=== PATIENT | female | born 1955 ===

== ENCOUNTER → 2021-01-18 12:09 | Outpatient (CLI) | payer MEDICARE, SELFPAY ==
--- NOTE | ~2021-01-18 | DEXA_ITS ---
Bone Density Report Name: Bailey Paez Age: 65 Sex: Female Ethnicity: White Date of : 1955 Indication: osteopenia; parental hip fracture; cancer; postmenopausal Referring Provider: RONNIE, GASPER Franco Study: Bone densitometry was performed. Exam Date: January 18, 2021 Accession number: [id number] Bone Density: Region BMD T-score Z-score Classification AP Spine (L1-L4) 0.742 -2.8 -0.8 Osteoporosis Femoral Neck (Left) 0.844 0.0 1.6 Normal Total Hip (Left) 0.905 -0.3 1.1 Normal Femoral Neck (Right) 0.794 -0.5 1.2 Normal Total Hip (Right) 0.898 -0.4 1.0 Normal Total Hip Mean 0.902 -0.4 1.1 Normal World Health Organization criteria for BMD impression classify patients as: Normal (T-score at or above -1.0), Osteopenia (T-score between -1.0 and -2.5), or Osteoporosis (T-score at or below -2.5). 10-year Fracture Risk: FRAX not reported because: Some T-score for Spine Total or Hip Total or Femoral Neck at or below -2.5 Previous Exams: Region Exam Age BMD T-score BMD Change BMD Change Date g/cm2 vs Baseline vs Previous AP Spine(L1-L4) 01/18/2021 65 0.742 -2.8 -0.093* -0.051* 08/14/2018 63 0.794 -2.3 -0.042* -0.042* 07/04/2016 61 0.835 -1.9 Total Hip(Left) 01/18/2021 65 0.905 -0.3 -0.048* -0.045* 08/14/2018 63 0.950 0.1 -0.004 -0.004 07/04/2016 61 0.953 0.1 Total Hip(Right) 01/18/2021 65 0.898 -0.4 -0.035* -0.039* 08/14/2018 63 0.936 0.0 0.004 0.004 07/04/2016 61 0.933 -0.1 *Denotes significance at 95% confidence level, LSC for AP Spine = 0.022 g/cm2, LSC for Total Hip = 0.027 g/cm2 Clinical Information Provided by Patient: Parent has had a hip fracture Has used the following medications: Vitamin D, Calcium, MTV, Anastrozole Has the following medical conditions: Cancer Patient maximum height was 65.0 Menopause Age: 56 Drinks caffeinated beverages Onset of menses at age 12 Number of children 2 Impression: The patient has osteoporosis, based on the Total Spine T-score. The patient has risk factors, including: parental hip fracture. The BMD for the AP Spine(L1-L4) decreased, changing by -0.051 since the last DXA exam. The BMD for the Total Hip(Left) decreased, changing by -0.045 since the last DXA exam. The BMD for the Total Hip(Right) decreased, changing by -0.039 since the last DXA exam. Discussion: GUMARO
== END ==
PROVIDERS: Visit Provider Internal Medicine Medical Oncology
DX: E55.9 Vitamin D deficiency, unspecified (principal); Z79.811 Long term (current) use of aromatase inhibitors; M81.0 Age-related osteoporosis without current pathological fracture
CPT/HCPCS: 77080

== ENCOUNTER → 2023-01-29 13:36 | Outpatient (CLI) | payer MEDICARE, SELFPAY ==
--- NOTE | ~2023-01-29 | DEXA_ITS ---
Bone Density Report Name: CITLALY GARCIAS Age: 67 Sex: Female Ethnicity: White Date of : 1955 Indication: postmenopausal osteoporosis; parental hip fracture; cancer; Referring Provider: PARMJIT BARRON Study: Bone densitometry was performed. Exam Date: January 29, 2023 Accession number: [id number] Bone Density: Region BMD T-score Z-score Classification AP Spine (L1-L4) 0.743 -2.8 -0.7 Osteoporosis Femoral Neck (Left) 0.867 0.2 1.9 Normal Total Hip (Left) 0.897 -0.4 1.1 Normal Femoral Neck (Right) 0.817 -0.3 1.5 Normal Total Hip (Right) 0.910 -0.3 1.2 Normal Total Hip Mean 0.904 -0.4 1.2 Normal World Health Organization criteria for BMD impression classify patients as: Normal (T-score at or above -1.0), Osteopenia (T-score between -1.0 and -2.5), or Osteoporosis (T-score at or below -2.5). 10-year Fracture Risk: FRAX not reported because: Some T-score for Spine Total or Hip Total or Femoral Neck at or below -2.5 Previous Exams: Region Exam Age BMD T-score BMD Change BMD Change Date g/cm2 vs Baseline vs Previous AP Spine(L1-L4) 01/29/2023 67 0.743 -2.8 -0.093* 0.000 01/18/2021 65 0.742 -2.8 -0.093* -0.051* 08/14/2018 63 0.794 -2.3 -0.042* -0.042* 07/04/2016 61 0.835 -1.9 Total Hip(Left) 01/29/2023 67 0.897 -0.4 -0.056* -0.008 01/18/2021 65 0.905 -0.3 -0.048* -0.045* 08/14/2018 63 0.950 0.1 -0.004 -0.004 07/04/2016 61 0.953 0.1 Total Hip(Right) 01/29/2023 67 0.910 -0.3 -0.023 0.012 01/18/2021 65 0.898 -0.4 -0.035* -0.039* 08/14/2018 63 0.936 0.0 0.004 0.004 07/04/2016 61 0.933 -0.1 *Denotes significance at 95% confidence level, LSC for AP Spine = 0.022 g/cm2, LSC for Total Hip = 0.027 g/cm2 Clinical Information Provided by Patient: Parent has had a hip fracture Has used the following medications: Fosamax (i.e. alendronate), Vitamin D, Calcium, MTV, ANESTROZOL Has the following medical conditions: Cancer Patient maximum height was 65.0 Menopause Age: 56 Drinks caffeinated beverages Onset of menses at age 12 Number of children 2 Impression: The patient has osteoporosis, based on the Total Spine T-score. The patient has risk factors, including: parental hip fracture. No significant bone loss was observed. Discussion: INC
== END ==
DX: M81.0 Age-related osteoporosis without current pathological fracture (principal)
CPT/HCPCS: 77080

== ENCOUNTER 2025-02-28 10:39 | Outpatient (CLI) | payer MEDICARE, SELFPAY ==
--- NOTE | ~2025-02-28 | DEXA_ITS ---
Bone Density Report Name: CITLALY GARCIAS Age: 69 Sex: Female Ethnicity: White Date of : 1955 Indication: postmenopausal; screening for osteoporosis; parental hip fracture; height loss; cancer; Referring Provider: UNKNOWN, UNKNOWN Study: Bone densitometry was performed. Exam Date: February 28, 2025 Accession number: [id number] Bone Density: Region BMD T-score Z-score Classification AP Spine(L1-L4) 0.732 -2.9 -0.6 Osteoporosis Femoral Neck (Left) 0.872 0.2 2.1 Normal Total Hip (Left) 0.933 -0.1 1.5 Normal Femoral Neck (Right) 0.809 -0.4 1.5 Normal Total Hip (Right) 0.914 -0.2 1.4 Normal Total Hip Mean 0.924 -0.2 1.5 Normal World Health Organization criteria for BMD impression classify patients as: Normal (T-score at or above -1.0), Osteopenia (T-score between -1.0 and -2.5), or Osteoporosis (T-score at or below -2.5). 10-year Fracture Risk: FRAX not reported because: Some T-score for Spine Total or Hip Total or Femoral Neck at or below -2.5 Clinical Information Provided by Patient: Parent has had a hip fracture Has used the following medications: Vitamin D, Calcium Has the following medical conditions: Cancer Patient maximum height was 65.0 Menopause Age: 56 Drinks caffeinated beverages Onset of menses at age 12 Number of children 2 Impression: The patient has osteoporosis, based on the Total Spine T-score. The patient has risk factors, including: parental hip fracture. Discussion: INCREASED RISK OF FRACTURE. BONE DENSITY IS UNDESIRABLY LOW AT ONE OR MORE SKELETAL SITES, CONSISTENT WITH POSTMENOPAUSAL OSTEOPOROSIS. This patient's lowest T-score meets the World Health Organization's (WHO) criteria for osteoporosis at one or more sites (T-score -2.5 or below). In untreated patients, the risk of osteoporotic fracture increases approximately two-fold for each 1.0 SD decrease in T-score. Low bone density is not the only risk factor for fracture; also consider factors such as patient's age, frailty or poor health, risk of falling, risk of injury, previous osteoporotic fracture, family history of osteoporosis, cigarette smoking, low body weight, etc. Not everyone with low bone mineral density has osteoporosis; osteomalacia and other metabolic bone disorders should also be considered. Patients who have osteoporosis should be evaluated for specific diseases and conditions (secondary causes) that may cause or contribute to bone loss. The [place] [employer] Clinical Endocrinologists (AACE) and National Osteoporosis Foundation (NOF) recommend pharmacologic intervention for all postmenopausal women whose T-score is in this range. The patient should follow a healthful lifestyle (good nutrition with adequate calcium and vitamin D, and appropriate weight-bearing exercise). Follow-Up: Consider a repeat BMD and Vertebral Fracture Assessment (VFA) exam in 2 years or sooner if medically necessary, to reassess this patient's status. Reported by: BERNA on 02/28/2025 11:22:00 AM. Reviewed, dictated and finalized at location [facility]
--- OUTSIDE RECORDS SUMMARY | 2025-02-28 12:03 | XMS_ITS | Clinical Summary ---
Author Organization [facility] Address [address] [place] [address] Care Team Providers Care Forestry Worker Name Role Phone Monse Zeng NP Primary Care Provider + [phone] Allergies No known active allergies Medications anastrozole 1 MG tablet Take 1 tablet by mouth daily. 12/17/2018 Active Probiotic Product (PROBIOTIC & ACIDOPHILUS EX ST) Cap Take 1 tablet by mouth daily. Active omega-3 fatty acid 1000 MG capsule Take 1 capsule by mouth daily. Active Multiple Vitamins-Mineral s (MULTI COMPLETE OR) Take 1 tablet by mouth daily. Active calcium carbonate 1250 (500 Ca) MG tablet Take 1 tablet by mouth daily. Active traMADol 50 MG tabletIndication s:Acute Pain < 3 Day Supply Take 1 tablet (50 mg total) by mouth every 6 (six) hours as needed for Pain. Indications: Acute Pain < 3 Day Supply 8 tablet 05/17/2022 Active methocarbamol 750 MG TabIndications:S pasm of thoracic back muscle Take 2 tablets by mouth three times daily as needed for muscle pain and tightness. 90 tablet 05/21/2022 Active Active Problems Problem Noted Date Diagnosed Date Overweight (BMI 25.0-29.9) 05/21/2022 Prediabetes 11/11/2019 Breast cancer, stage 3 ([facility]) 013 Immunizations Name Administration Dates Next Due Fluzone High Dose - >Age 65 (Prefilled Syringe) 08/28/2021,08/28/2020,08/19/2019,2017 Influenza (Generic) 09/02/2017, 6,09/08/2015,2013,09/15/2013,09/22/2012 Influenza Adult (Generic) 08/28/2020,08/19/2019, 09/08/2015 MODERNA COVID-19 (12+) MRNA, LNP-S, PF, 100 MCG/ 0.5 ML DOSE 03/14/2022,07/25/2021,01/26/2021,2020 Pneumococcal (Pneumovax 23) 08/19/2019 Pneumococcal (Prevnar 13) 08/25/2018 Shingrix 06/08/2019,03/02/2019 Tdap (Adacel) 09/08/2014 Family History Medical History Relation Comments CHF Father Dementia Mother Diabetes Mother Relation Status Comments Father Mother Social History Tobacco Use Types Packs/Day Years Used Date Smoking Tobacco: Former Cigarettes Smokeless Tobacco: Never Tobacco Cessation:Counseling Given: Yes Alcohol Use Standard Drinks/Week Comments Yes 0 (1 standard drink = 0.6 oz pur e alcohol) social PHQ-2 Answer Date Recorded PHQ-2 Score - If the patient scores above 3, please move on to questions 3-9 0 05/21/2022 Comments No Sex and Gender Information Value Date Recorded Sex Assigned at Not on file Legal Sex Female 8:21 PM CDT Gender Identity Not on file Sexual Orientation Not on file Last Filed Vital Signs Vital Sign Reading Time Taken Comments Blood Pressure 132/82 05/21/2022 11:09 AM CDT Pulse 63 05/21/2022 11:09 AM CDT Temperature 37.1 C (98.7 F) 05/21/2022 11:09 AM CDT Respiratory Rate 18 05/21/2022 11:09 AM CDT Oxygen Saturation 98% 05/21/2022 11:09 AM CDT Inhaled Oxygen Concentration - - Weight 68.5 kg (151 lb) 05/21/2022 11:09 AM CDT Height 162.6 cm (5' 4 ) 05/21/2022 11:09 AM CDT Body Mass Index 25.92 05/21/2022 11:09 AM CDT Plan of Treatment Health Maintenance Due Date Last Done Comments Hepatitis C 1971 Mammogram Screening 1993 Annual Medicare Wellness Visit 2018 Dexa Scan (General) 2018 COVID-19 Vaccine ( season) 2024 08/29/2022, 03/14/2022, 07/25/2021, Additional history exists DTaP, Tdap and Td Vaccines (2 - Td or Tdap) 09/08/2024 09/08/2014 PHQ-2 (Physician [place]) 12/01/2024 RSV Immunization or 60+ Years (1 - 1-dose 75+ series) 2028 Colorectal Cancer Screening Colonoscopy (10 Years) 04/28/2028 04/28/2018 Zoster Vaccines Completed 06/08/2019, 03/02/2019 Pneumococcal Vaccine: 65+ Years Completed 08/19/2019, 08/25/2018 Meningococcal B Vaccine Aged Out No l onger eligible based on patient's age to complete this topic Meningococcal Vaccine Aged Out No heber nathan eligible based on patient's age to complete this topic RSV Immunizations Under 20 Months Aged Out No longer eligible based on patient's age to complete this topic Procedures Procedure Name Priority Date/Time Associated Diagnosis Comments COLONOSCOPY Routine 04/28/2018 12:00 AM CDT from Last 3 Months or Most Recently Relevant to Health Maintenance Results * Colonoscopy (04/28/2018 12:00 AM CDT) 04/28/2018 04/28/2018 Narrative [facility] TO EPIC CONVERSION - 04/28/2018 12:00 AM CDT Documented hx of procedure Procedure Note Lenore Marie MD - 10/04/2018 Documented hx of procedure us Generic Conversion Md MARIE GI PROCEDURE ORDERABLES Final Result [facility] TO EPIC CONVERSION from Last 3 Months or Most Recently Relevant to Health Maintenance Insurance MEDICARE [employer] Care Teams Forestry Worker Relationship Specialty [place] [id number] [address] PCP - General Nurse Practitioner Family 05/21/22
--- OUTSIDE RECORDS SUMMARY | 2025-02-28 12:03 | XMS_ITS | Clinical Summary ---
Author Organization [facility] Address [address] [place] [address] Phone Care Team Providers Care Extruder Operator Vertical Name Role Phone Vamshi Su MD Primary Care Provide r Allergies No known active allergies Medications MULTIVITAMIN ORAL Take by mouth. Active OMEGA-3 FATTY ACIDS (FISH OIL ORAL) Take by mouth. Active Lactobac comb [id number] ne 300-250 million cell-mg CapsuleIndicat ions:Breast cancer (CMS/HCC) Take by mouth. Active calcium carbonate (CALCIUM 600 ORAL) Take 1 Tablet by mouth. 1250 mg Active alendronate (FOSAMAX) 70 mg tablet TAKE 1 TABLET EVERY 7 DAYS. EMPTY STOMACH BEFORE OTHER MEDS,WITH 8OZ OF WATER, STAY UPRIGHT 30 MIN 12 Tablet 3 5 Active alendronate (FOSAMAX) 70 mg tablet TAKE 1 TABLET BY MOUTH EVERY 7 DAYS. EMPTY STOMACH BEFORE OTHER MEDS,WITH 8OZ OF WATER, STAY UPRIGHT 30 MIN 12 Tablet 3 4 02/18/20 25 Discontinued Active Problems Patient Care Coordination No te Formatting of this note migh t be different from the original. Primary Care: Raul Zabala FNP Referring Provider: Raul Zabala FNP [address] [place] [id number] Other: Problem Noted Date Diagnosed Date Prediabetes 11/11/2019 Influenza A 11/16/2017 Overview (11/16/2017): 2017 Breast cancer clinically T3N 1 left ILC pT3N2 multifocal stage IIIA 05/05/2013 Cancer Staging:Clinical:T3N1 left- Unsigned Pathologic: Unsigned Overview (05/28/2013): Er+,pr+, HER2 NEG, MIB 15% Bilateral mastectomies Chenotherapy, cytoxan,taxotere x 4, then RT, then aromatase inhibitor Resolved Problems Problem Noted Date Diagnosed Date Resolved Date History of blood clots 04/27 Encounters Date Type Department Care Team Description 02/17/2025 [facility] [address] [place] [address] Wen Guo MD 01/18/2025 External Device Data STL ABSTRACTION Provider, Abstract 12/22/2024 External Device Data STL ABSTRACTION Provider, Abstract 12/21/2024 External Device Data STL ABSTRACTION Provider, Abstract 12/14/2024 External Device Data STL ABSTRACTION Provider, Abstract from Last 3 Months Immunizations Immunization Administration Dates Next Due (Moderna Bivalent)(6 Mos Up) COVID-19 Vaccine - Emergency Use Authorization, MRNA(Pf) 50 Mcg/0.5 Ml Im Susp 08/29/2022 Influenza Seasonal Unspecifi ed Formulation IM 08/01/2022,09/08/2015,09/15/2013 Influenza Vaccine Split 3+ Yrs IM 08/11/2014 Family History Medical History Relation Name Comments Heart Disease Father Colon Cancer Maternal Grandfather Diabetes Mother Breast Cancer Neg Hx Ovarian Cancer Neg Hx Relation Name Status Comments Father Maternal Grandfather Mother Social History Tobacco Use Types Packs/Day Years Used Date Smoking Tobacco: Former Cigarettes 0.3 5 0 05/30/1975 - 05/30/1980 Smokeless Tobacco: Former Quit: 12/14/1980 Tobacco Cessation:Counseling Given: Not Answered Alcohol Use Standard Drinks/Week Comments Yes 0 (1 standard drink = 0.6 oz pur e alcohol) rare Feeling Safe Answer Date Recorded Are you in a relationship wi th someone who hurts you emotionally and/or physically? No 05/16/2023 Comments No Sex and Gender Information Value Date Recorded Sex Assigned at Not on file Legal Sex Female 9:10 AM CDT Gender Identity Not on file Sexual Orientation Not on file Occupation Industry Job Start Date Job End Date Not on file Not on file Not on file Not on file Last Filed Vital Signs Vital Sign Reading Time Taken Comments Blood Pressure 128/76 11/04/2024 11:02 AM MEDICAL LAB SCIENTIST Pulse 56 11/04/2024 11:02 AM MEDICAL LAB SCIENTIST Temperature 36.9 C (98.5 F) 11/04/2024 11:02 AM MEDICAL LAB SCIENTIST Respiratory Rate 16 11/04/2024 11:02 AM MEDICAL LAB SCIENTIST Oxygen Saturation 98% 05/06/2024 11:20 AM CDT Inhaled Oxygen Concentration - - Weight 68 kg (150 lb) 11/04/2024 11:02 AM MEDICAL LAB SCIENTIST Height 162.6 cm (5' 4 ) 11/04/2024 11:02 AM MEDICAL LAB SCIENTIST Body Mass Index 25.75 11/04/2024 11:02 AM MEDICAL LAB SCIENTIST Plan of Treatment Upcoming Encounters Date Type Department Care Team (Late st Contact Info) Description 05/05/2025 11:00 AM CDT Office Visit [facility] ONCOLOGY AND HEMATOLOGY-[address] [address] Wen Guo MD [address] [place] [address] Health Maintenance Due Date Last Done Comments Traditional Medicare (ACO) A nnual Wellness Visit 1972 FIT-DNA Q 3 years 1998 Flex Sig/CT Colonography Q 5 years 1998 BREAST CANCER SCREENING 04/27/2014 04/27/20 13, 06/22/2012, 06/19/2011, Additional history exists FIT/FOBT Q 1 year 06/28/2017 06/28/2016, 06/26/2015 INFLUENZA VACCINE (#1) 2024 2, 08/28/2021, 08/28/2020, Additional history exists COVID-19 Vaccine (2023-2 5 season) 2024 08/29/2022, 03/14/2022, 07/25/2021, Additional history exists DTAP/TDAP/TD VACCINES (2 - T d or Tdap) 09/08/2024 09/08/2014 OSTEOPOROSIS SCREENING 01/29/2025 3, 01/29/2023, 01/18/2021, Additional history exists RSV VACCINE (60+ or ) (1 - 1-dose 75+ series) 2028 COLORECTAL SCREENING 05/16/2028 05/16/2023, 05/16/2023, 04/28/2018, Additional history exists Colorectal Cancer Screening 05/16/2028 ZOSTER VACCINE Completed 06/08/2019, 03/02/2019 PNEUMOCOCCAL VACCINE 50+ YEARS Completed 08/19/2019 , 08/25/2018 Medical Devices Explanted Type Area Sorter Packer Device Identifier Shelf Expiration Date Model / Serial / Lot Port Ultra Slimport 6fr [id number] - [id number] Implanted:Qty: 1 on 06/09/2013 by Kandis Hoffman MD at [facility] Explanted:Qty: 1 on 09/17/2013 at [facility] [place] Right: Chest CR [employer] 08/31/2017 [id number] / / [id number] Description:Right IJ Procedures Procedure Name Priority Date/Time Associated Diagnosis Comments COLONOSCOPY REPORT 05/16/2023 8: 13 AM CDT XR DEXA BONE DENSITY AXIAL 1 OR MORE SITES Routine 01/29/2023 Osteoporosis, unspecified osteoporosis type, unspecified pathological fracture presence POC OCCULT BLOOD, IMMUNO, QUAL, STOOL Routine 06/28/2016 8:24 AM CDT Screening for malignant neoplasm of the rectum MAMMO DIAGNOSTIC UNI LEFT W OR WO CAD Routine 04/27/2013 4:35 PM CDT Mass of breast Abnormal mammogram from Last 3 Months or Most Recently Relevant to Health Maintenance Results * COLONOSCOPY REPORT (05/16/2023 8:13 AM CDT) Narrative Procedure Note Iftikhar Alvarez MD - 05/16/2023 8:13 AM CDT [facility] Endoscopy Patient Name: Bailey Paez Procedure Date: 05/16/2023 Date of : 1955 Attending MD: Iftikhar Alvarez MD, Procedure: Colonoscopy Indications: Surveillance: Personal history of adenomatous polyps on last colonoscopy 5 years ago Providers: Iftikhar Alvarez MD Referring MD: Vamshi Su Medicines: Propofol per Anesthesia Complications: No immediate complications. Procedure: Informed consent was obtained for the procedure, including moderate sedation after risks were discussed. Based on the pre-procedure assessment, including review of the patient's medical history, medications, allergies, and review of systems, the patient was deemed to be an appropriate candidate for sedation. A timeout was performed. Continuous ECG monitoring, pulse oximetry, blood pressure monitoring, and direct observation were performed. The Colonoscope was introduced through the anus and advanced to the cecum, identified by appendiceal orifice and ileocecal valve. The colonoscopy was performed without difficulty. The patient tolerated the procedure well. The quality of the bowel preparation was good. Estimated Blood Loss: Estimated blood loss: none. Findings: The colonic mucosa was without erythema or ulceration. There were no appreciable diverticulum. The colon prep was good excellent. There were no appreciable polypoid lesions or areas of mucosal change to suggest adenomatous tissue. Retroflexion showed internal hemorrhoids. Impression: Normal colonoscopy to the cecum without polyps in the setting of good prep. Internal hemorrhoids. Recommendation: Colon polyp surveillance recommend follow-up colonoscopy in 5 to 7 years Iftikhar Alvarez MD 05/16/2023 8:13:01 AM This report has been signed electronically. Number of Addenda: [phone] ; [place] [address] Iftikhar Alvarez MD GI PROCEDURE ORDERABLES Betty l Result * XR DEXA BONE DENSITY AXIAL 1 OR MORE SITES (01/29/2023) T-SCORE FEMUR EXECUTIVE CREATIVE DIRECTOR AL RADIOLOGY T-SCORE FEMUR (LEFT) EXTERNAL RADIOLOGY T-SCORE FEMUR (RIGHT) EXTERNAL RADIOLOGY T-SCORE FEMUR NECK EXTERNAL RADIOLOGY T-SCORE FEMORAL NECK (LEFT) EXTERNAL RADIOLOGY T-SCORE FEMORAL NECK (RIGHT) EXTERNAL RADIOLOGY T-SCORE HEEL EXTERNA L RADIOLOGY T-SCORE HEEL (LEFT) EXTERNAL RADIOLOGY T-SCORE HEEL (RIGHT) EXTERNAL RADIOLOGY T-SCORE HIP EXTERNAL RADIOLOGY T-SCORE HIP (LEFT) EXTERNAL RADIOLOGY T-SCORE HIP (RIGHT) EXTERNAL RADIOLOGY T-SCORE WRIST EXECUTIVE CREATIVE DIRECTOR AL RADIOLOGY T-SCORE WRIST (LEFT) EXTERNAL RADIOLOGY T-SCORE WRIST (RIGHT) EXTERNAL RADIOLOGY T-SCORE SPINE EXECUTIVE CREATIVE DIRECTOR AL RADIOLOGY Anatomical Region Laterality Modality Other us Beatrice Fulton MD DIAGNOSTIC IMAGING ORDER MODESTA Final Result * POC OCCULT BLOOD, IMMUNO, QUAL, STOOL (06/28/2016 8:24 AM CDT) OCCULT BLOOD, IMMUNOASSAY STOOL1 POC negative [facility] OCCULT BLOOD, IMMUNOASSAY STOOL2 POC [facility] OCCULT BLOOD, IMMUNOASSAY STOOL3 POC [facility] Stool specimen (specimen) STOOL SPECIMEN / Unknown 06/28/2016 8:24 AM CDT Adriane Mike NP POINT OF CARE TESTING Final Result [facility] * MAMMO DIGITAL DIAG UNI LEFT (04/27/2013 4:35 PM CDT) Anatomical Region Laterality Modality Breast Left Mammography 04/27/2013 4:35 PM CDT Impressions 04/28/2013 2:48 PM CDT IMPRESSION: Technically successful left breast ultrasound guided core biopsy with tissue marker placement and technically successful left axillary lymph node ultrasound guided core biopsy. Dictated from [facility] Narrative 04/28/2013 2:48 PM CDT LEFT BREAST ULTRASOUND 04/27/13 HISTORY: Left breast mass, which is highly concerning for malignancy. An ultrasound of the left axilla has been requested. TECHNIQUE: A left axillary ultrasound was performed. FINDINGS: In the left axilla, one if not 2 enlarged lymph nodes are identified. One of the lymph nodes has a cortex which is somewhat irregular and lobulated. This lymph node measures 1.8 x 1.2 x 1.2 cm in size. An ultrasound-guided core biopsy of this will be performed. EXAM: ULTRASOUND GUIDED VACUUM ASSISTED CORE BIOPSY OF THE LEFT BREAST, TISSUE MARKER CLIP PLACEMENT, UNILATERAL DIAGNOSTIC MAMMOGRAM AND ULTRASOUND GUIDED SPRING LOADED CORE BIOPSY OF LEFT AXILLARY LYMPH NODE. Date: 04/27/13 History: Left breast mass. An ultrasound-guided core biopsy has been requested. Procedure and Findings: The risks and potential benefits of the procedure were discussed with the patient and written informed consent was obtained. Attention was first directed to the left breast lesion of interest. After sterile preparation of the skin, 1% lidocaine without epinephrine and 2% lidocaine with epinephrine was utilized for local anesthesia. A 10 gauge vacuum-assisted core biopsy device was advanced through lesion of interest utilizing sonographic guidance. A total of 3 tissue cores were obtained through the lesion. A tissue marker clip was then placed at the biopsy site. Hemostasis was achieved. A sterile bandage and ice pack were applied. The tissue cores were submitted to surgical pathology in formalin for histologic analysis. Attention was then directed to the left axillary lymph node of interest. After sterile preparation of the skin, 1% lidocaine without epinephrine and 2% lidocaine with epinephrine was utilized for local anesthesia. A 14 gauge spring-loaded core biopsy device as advanced to the level of the suspicious lymph node. 2 cores were obtained through the lymph node utilizing sonographic guidance. Hemostasis was achieved. The specimens were submitted for histological evaluation. A two-view left unilateral full field digital mammogram was obtained postprocedure and demonstrates that the tissue marker clip is in the expected position. Patient tolerated the above procedures well and there was no evidence of immediate complication. Patient was given verbal as well as written postprocedural instructions prior to release from the department. Procedure Note Patricia Desai MD - 04/28/2013 LEFT BREAST ULTRASOUND 04/27/13 HISTORY: Left breast mass, which is highly concerning for malignancy. An ultrasound of the left axilla has been requested. TECHNIQUE: A left axillary ultrasound was performed. FINDINGS: In the left axilla, one if not 2 enlarged lymph nodes are identified. One of the lymph nodes has a cortex which is somewhat irregular and lobulated. This lymph node measures 1.8 x 1.2 x 1.2 cm in size. An ultrasound-guided core biopsy of this will be performed. EXAM: ULTRASOUND GUIDED VACUUM ASSISTED CORE BIOPSY OF THE LEFT BREAST, TISSUE MARKER CLIP PLACEMENT, UNILATERAL DIAGNOSTIC MAMMOGRAM AND ULTRASOUND GUIDED SPRING LOADED CORE BIOPSY OF LEFT AXILLARY LYMPH NODE. Date: 04/27/13 History: Left breast mass. An ultrasound-guided core biopsy has been requested. Procedure and Findings: The risks and potential benefits of the procedure were discussed with the patient and written informed consent was obtained. Attention was first directed to the left breast lesion of interest. After sterile preparation of the skin, 1% lidocaine without epinephrine and 2% lidocaine with epinephrine was utilized for local anesthesia. A 10 gauge vacuum-assisted core biopsy device was advanced through lesion of interest utilizing sonographic guidance. A total of 3 tissue cores were obtained through the lesion. A tissue marker clip was then placed at the biopsy site. Hemostasis was achieved. A sterile bandage and ice pack were applied. The tissue cores were submitted to surgical pathology in formalin for histologic analysis. Attention was then directed to the left axillary lymph node of interest. After sterile preparation of the skin, 1% lidocaine without epinephrine and 2% lidocaine with epinephrine was utilized for local anesthesia. A 14 gauge spring-loaded core biopsy device as advanced to the level of the suspicious lymph node. 2 cores were obtained through the lymph node utilizing sonographic guidance. Hemostasis was achieved. The specimens were submitted for histological evaluation. A two-view left unilateral full field digital mammogram was obtained postprocedure and demonstrates that the tissue marker clip is in the expected position. Patient tolerated the above procedures well and there was no evidence of immediate complication. Patient was given verbal as well as written postprocedural instructions prior to release from the department. IMPRESSION IMPRESSION: Technically successful left breast ultrasound guided core biopsy with tissue marker placement and technically successful left axillary lymph node ultrasound guided core biopsy. Dictated from [facility] [place] us Day Hernandez MD MAMMO ORDERABLES Final Result from Last 3 Months or Most Recently Relevant to Health Maintenance Insurance MEDICARE PART A AND B [employer] MEDICARE SUPP AESSI Advance Directives For more information, please contact: [phone] Documents on File Type Date Recorded Patient Ultimate Hoops Trainer Expl anation Advance Directive POA 05/27/2013 8:37 AM A dvance Directive POA Advance Directive Living Will 05/27/2013 8:37 AM Advance Directive Living Will * Full Code (Latest Code Status on File) Date Activated Date Inactivated Comments 05/16/2023 6:50 AM 05/16/2023 10:47 AM * Full Code Date Activated Date Inactivated Comments 04/28/2018 7:39 AM 04/28/2018 11:35 AM * Full Code Date Activated Date Inactivated Comments 05/31/2014 11:47 AM 05/31/2014 5:22 PM * Full Code Date Activated Date Inactivated Comments 09/17/2013 8:15 AM 09/17/2013 12:04 PM * Full Code Date Activated Date Inactivated Comments 09/17/2013 8:08 AM 09/17/2013 8:15 AM Care Teams Extruder Operator Vertical Relationship Specialty Start Date End Date Vamshi Su MD PCP - General Internal Medicine 05/29/16
--- OUTSIDE RECORDS SUMMARY | 2025-02-28 12:03 | XMS_ITS | Encounter Summary ---
Author Organization [facility] Address [facility] [place] [address] Care Team Providers Care Remote Sensing Technologist Name Role Phone Vamshi Su MD Primary Care Provider [phone] Monse Zeng NP Primary Care Provider + [phone] Encounter Details Date Type Department Care Team (Latest Contact Info) Description 10/06/2018 Abstract [facility] , Lenore Clancy MD Social History Tobacco Use Types Packs/Day Years Used Date Smoking Tobacco: Never Assessed Comments Unknown Sex and Gender Information Value Date Recorded Sex Assigned at Not on file Legal Sex Female 8:21 PM CDT Gender Identity Not on file Sexual Orientation Not on file documented as of this encounter Plan of Treatment Not on file documented as of this encounter Visit Diagnoses Not on filedocumented in this encounter Care Teams Remote Sensing Technologist Relationship Specialty Start Date End Date Vamshi Su MD PCP - General INTERNAL MEDICINE 06/18/19 05/20/22 [place] [address] [facility] [address] [place] [id number] PCP - General Nurse Practitioner Family 05/21/22 documented as of this encounter
== END 2025-02-28 10:40 | disposition home or self-care (01) ==
LOC: ANHIMG 10:42
PROVIDERS: PCP Internal Medicine Medical Oncology
DX: C50.011 Malignant neoplasm of nipple and areola, right female breast (principal); M81.0 Age-related osteoporosis without current pathological fracture; Z79.811 Long term (current) use of aromatase inhibitors
CPT/HCPCS: 77080